=== PATIENT | female | born 1970 | race Caucasian/White ===

== ENCOUNTER 2019-01-27 21:29 | Observation (INO) | payer OTHER, SELFPAY ==
[2019-01-27 21:32] VITALS: BP 213/118; PULSE 100; RESP 18; TEMP 36.7; O2SAT 95
--- NOTE | 2019-01-27 21:42 | ED.GENADUL_ITS ---
Discharge Plan Disposition Patient Disposition: [facility] INPATIENT Condition: Fair Discharge Details Chief Complaint: Abd Prob Clinical Impression: Incarcerated ventral hernia Primary Care Provider: Lauren,Local ED Provider: Bernardo Aguilar Home Meds and New Rx's Prescriptions: No Action No Known Home Meds RF: 0 Medical Decision Making Patient is quite hypertensive and I suspect has undiagnosed high blood pressure. However she is in fair amount of discomfort and anxious as well. She has an incarcerated hernia clinically. IV established and fluids started. Patient m tammi n.p.o. Laboratory studies sent. Fentanyl given for pain so that further attempts at reduction of hernia can be performed. Even with 150 mcg of fentanyl on board patient remains exquisitely tender and unable to tolerate attempted reduction of hernia. Saturations went down after opiates and she needed to be placed on nasal cannula oxygen. Blood pressure remained elevated despite adequate analgesia and anxiolysis. She is given a small dose of IV labetalol with decent results to control her blood pressure to some degree. EKG was ordered. Laboratory studies show a slightly elevated white count. She also has elevated hemoglobin and hematocrit that is likely related to polycythemia from her smoking. Chemistries for the most part unremarkable. Lactic acid 1.5. Venous pH normal. Urine test negative. CT scan confirms large ventral hernia with piece of transverse colon present within the hernia sac. Case discussed with surgery, Dr. Diaz. We will keep the patient n.p.o. and on IV fluids. Admit for pain medication as needed and she will reevaluate in the morning. Patient aware and agreeable to admission. Lab Data Lab results reviewed: Yes I reviewed the patient's lab results. ECG Data Attestation: I personally reviewed and interpreted this ECG (s) as follows: Prior ECG tracings: not available for review Interpretation: Sinus tachycardia at 117. Normal intervals but rightward axis. Nonspecific ST changes but no ST elevation or depression. HPI General Mode of arrival: ambulatory . Date/Time Provider Initiated Documentation: 01/27/19 21:31 . Limitations to Documentation: no limitations . Information obtained by: patient and RN notes reviewed . HPI Narrative: Patient presents to ED with abdominal pain and swelling just above the umb ilicus. Patient reports that for the last few months she has noticed a bulge there especially when she bends over or coughs. It usually uncomfortable but not painful. Tonight after doing housework she is noticed that she has had increasing pain in that area. It is now actually very painful for her to bend over or cough. The bulge is still present. She has not had this previously in terms of the significant pain. She denies any fever, vomiting, diarrhea. She denies any chest pain or shortness of breath. She denies back pain. She denies medical problems but she has not seen a physician in years. She is a fairly heavy smoker. Related Data Home Medications Medication Instructions Recorded Confirmed Unknown [No Known Home Meds] 03/05/18 01/27/19 Allergies Allergy/AdvReac Type Severity Reaction Status Date / Time latex Allergy Intermediate Skin Rash Unverified 03/05/18 16:26 rosa maria Allergy Intermediate Skin Rash Uncoded 03/05/18 16:26 General Stated Complaint: Abd Prob CIELO: 3 Review of Systems Review of Systems 06/28 Review of Systems completed and is negative except as stated above in HPI and generalized skin lesions that come and go. (Systems reviewed: Const, Eyes, ENT, Resp, CV, GI, , MSK, Skin, Neuro) REPLACED BY [facility] Surgical History History of section (Inactive) Social History Smoking/Tobacco Use Status: Current every day Tobacco Type: cigarettes Years smoked: 25 and e-cigarettes Tobacco: How many years used: 25 Alcohol Intake: current Alcohol Intake frequency: a few times a week Drug use: Never Do you feel safe at home: Yes Do you feel safe in your relationship?: Yes Exam Narrative Exam Narrative: Vitals: Afebrile. Very hypertensive. Const: Obese female in NAD. HEENT: NC/AT. Normal facial exam. Eyes: Normal conjunctiva and sclera. Neck: Supple. Trachea midline. Lungs: Normal respiratory effort. Lungs are clear except for occasional expiratory wheeze. Cor: RRR without murmur/gallop. Good radial pulses. GI: Soft. Obvious ventral hernia above umbilicus with exquisite tender mass present. Rest of abdomen completely benign. Neuro: A+O x 3. CN grossly in tact. Good strength and no focal deficit. Ext: No C/C/E. No deformity or tenderness. Skin: Warm and dry. Multiple excoriated lesions throughout. Course Vital Signs Temperature 98.1 F 01/27/19 21:32 Pulse 100 H 01/27/19 21:32 Respiratory Rate 18 01/27/19 21:32 Blood Pressure 213/118 H 01/27/19 21:32 Pulse Oximetry 95 01/27/19 21:32 Temperature 98.1 F 01/27/19 21:32 Temperature Source Temporal Artery Scan 01/27/19 21:32 Pulse 100 H 01/27/19 21:32 Respiratory Rate 18 01/27/19 21:32 Blood Pressure 213/118 H 01/27/19 21:32 Blood Pressure Position Sitting 01/27/19 21:32 Pulse Oximetry 95 01/27/19 21:32 Oxygen Delivery Method Room Air 01/27/19 21:32 Oxygen Flow Rate 0 01/27/19 21:32 Pain Level 8 01/27/19 21:32 Comment 01/27/19 21:32
[2019-01-27] MEDS: Lactated Ringers 1,000 ML 125 ML IV (22:20)
[2019-01-27 22:21] LABS: Abs Immature Grans 0.03 k/cumm (0.0-0.09); Absolute Basophil Count 0.04 k/cumm (0.0-0.2); Absolute Lymphocyte Count 2.58 k/cumm (1.2-3.4); Absolute Monocyte Count 0.74 k/cumm (0.11-0.7); Basophils % 0.3; Eosinophils % 1.2; HCT 53.2 % (36.0-46.0); HGB 17.4 g/dL (12.0-15.5); Immature Grans % 0.2; Lymphocytes % 21.3; Mean Corp. HGB Concentration 32.7 g/dL (32.0-36.0); Mean Corpuscular Hemoglobin 26.4 pg (27.0-33.0); Mean Corpuscular Volume 80.7 fL (80-95); Monocytes % 6.1; Neutrophils % 70.9; Platelet Count 359 x1000/uL (130-400); RBC 6.59 m/cumm (4.00-5.20); White Blood Cell Count 12.09 k/cumm (4.4-10.8)
[2019-01-27] MEDS: fentaNYL 100 MCG/2 ML VIAL 50 MCG IVP ×3 (22:21→22:43)
[2019-01-27] MEDS: Normal Saline Flush 10 ML SYR IVP (22:34)
[2019-01-27 22:37] LABS: Absolute Eosinophil Count 0.15 k/cumm (0.0-0.7); Absolute Neutrophil Count 8.57 k/cumm (1.2-6.7)
[2019-01-27 22:38] LABS: Anisocytosis 1+
[2019-01-27 22:39] LABS: Macrocytosis 1+
[2019-01-27 22:50] LABS: ALT 28 U/L (12-78); AST 20 U/L (15-37); Albumin 3.8 g/dL (3.4-5.0); Alkaline Phosphatase 72 U/L (46-116); Anion Gap 9.7 mmol/L (3-11); BUN 10 mg/dL (7-18); Bilirubin, Total 1.2 mg/dL (0.2-1.0); CO2 29.3 mmol/L (21.0-32.0); Calcium 9.3 mg/dL (8.5-10.1); Chloride 96 mmol/L (98-107); Glucose 91 mg/dL (70-100); Lipase 126 U/L (73-393); Magnesium 1.7 mg/dL (1.8-2.4); Potassium 3.5 mmol/L (3.5-5.1); Sodium 135 mmol/L (136-145); Total Protein 8.3 g/dL (6.4-8.2)
[2019-01-27 23:01] LABS: BE (Venous) 8.3 mmol/L (-3-3); HCO3 (Venous) 34 mmol/L (22-28); O2 Sat (Venous) 36 % (70-80); TCO2 (Venous) 30 mmol/L (22-29); pCO2 (Venous) 59 mm/Hg (34-47); pH (Venous) 7.37 (7.32-7.43); pO2 (Venous) 21 mm/Hg (28-44)
[2019-01-27 23:03] LABS: Lactate-non-spesis 1.5 mmol/l (0.6-1.4)
[2019-01-27 23:05] VITALS: BP 194/110; PULSE 112; RESP 16; O2SAT 88
[2019-01-27] MEDS: Omnipaque 350 MG/ML 100 ML BTL IJ (23:17)
--- NOTE | 2019-01-27 23:23 | DI.CT_ITS ---
SYMPTOM/DIAGNOSIS: ? INCARCERATED VENTRAL HERNIA, PAIN ABDOMEN AND PELVIC CT: CT examination of the abdomen and pelvis was performed with a bolus infusion of 100 cc's of Omnipaque 350. Images obtained through the lung bases show mild cardiomegaly and clear lung bases. The liver is unremarkable in appearance except for a low attenuation, right hepatic lobe mass measuring about 12 mm. in greatest diameter consistent with a benign process. Spleen is unremarkable in appearance. Pancreas appears normal. Gallbladder and bile ducts are CT normal. Adrenals and kidneys are unremarkable except for a horizontally oriented right kidney. No urinary tract calcification or obstruction. Abdominal aorta is of normal diameter and major branches appear intact. There is a small infra-umbilical, fat containing ventral hernia. There is a tiny fat containing umbilical hernia. There is supra-umbilical ventral hernia with the hernia diastasis measuring about 5-6 cm. in diameter with an approximately 13 cm. in maximal diameter transverse width of the hernia on transaxial images. This hernia contains a loop of transverse colon without evidence of obstruction or strangulation. Remainder of the bowel appears intact. Appendix is normal. No evidence of diverticulitis. RESERVOIR CARETAKER structures are unremarkable. No abdominal or pelvic adenopathy. CONCLUSION: Large supra-umbilical ventral hernia containing a short segment of transverse colon, no evidence of obstruction or strangulation.
--- NOTE | 2019-01-27 23:43 | DI.VRAD_ITS ---
EXAM: CT Abdomen and Pelvis With Contrast EXAM DATE/TIME: 01/27/2019 10:49 PM CLINICAL HISTORY: 48 years old, female; Generalized; Patient HX: Abdominal pain when coughing or bending over TECHNIQUE: Imaging protocol: Axial computed tomography images of the abdomen and pelvis with intravenous contrast. Coronal and sagittal reformatted images were created and reviewed. Radiation optimization: All CT scans at this facility use at least one of these dose optimization techniques: automated exposure control; mA and/or kV adjustment per patient size (includes targeted exams where dose is matched to clinical indication); or iterative reconstruction. Contrast material: [id number]; Contrast volume: 100 ml; Contrast route: IV; COMPARISON: No relevant prior studies available. FINDINGS: ABDOMEN: Liver: No suspicious lesions. Gallbladder and bile ducts: No acute or concerning findings. Pancreas: Unremarkable. No ductal dilation. Spleen: No suspicious lesions. Adrenals: Unremarkalbe. No suspicious mass. Kidneys and ureters: Unremarkable. No hydro. No suspicious lesions. Stomach and bowel: Unremarkable. No obstruction or inflammatory changes. Appendix: No evidence of appendicitis. PELVIS: Bladder: Unremarkable as visualized. Reproductive: Unremarkable as visualized. ABDOMEN and PELVIS: Intraperitoneal space: No free air. No significant fluid collection. Bones/joints: No acute fracture. No dislocation. Soft tissues: Just above the umbilicus there is a moderate sized ventral hernia containing a short segment of the transverse colon with no evidence of obstruction or strangulation. 8 cm below the umbilicus there is a small fat containing ventral hernia. Vasculature: Unremarkable. No acute findings Lymph nodes: Unremarkable. IMPRESSION: Just above the umbilicus there is a moderate sized ventral hernia containing a short segment of the transverse colon with no evidence of obstruction or strangulation. 8 cm below the umbilicus there is a small fat containing ventral hernia. Dictated and Authenticated by: Devonte Nava MD. Ordering:DAYANARA Chang MD
[2019-01-27 23:44] VITALS: BP 182/105; PULSE 106; PULSE 113; RESP 19; O2SAT 95
[2019-01-27 23:46] VITALS: BP 187/104; PULSE 109; PULSE 111; RESP 18; O2SAT 93
[2019-01-27 23:48] VITALS: BP 190/104; PULSE 113; RESP 18; O2SAT 88
[2019-01-27 23:49] VITALS: O2SAT 88
[2019-01-28] VITALS (18 sets, daily range): BP systolic 119–187; BP diastolic 69–104; PULSE 84–110; RESP 16–22; TEMP 36.3–37; O2SAT 87–96
[2019-01-28] MEDS: Labetalol 100 MG/20 ML VIAL 10 MG IVP (00:06)
[2019-01-28] MEDS: Lactated Ringers 1,000 ML 125 ML IV (02:30)
[2019-01-28 07:18] LABS: Abs Immature Grans 0.01 k/cumm (0.0-0.09); Absolute Basophil Count 0.02 k/cumm (0.0-0.2); Absolute Eosinophil Count 0.14 k/cumm (0.0-0.7); Absolute Lymphocyte Count 1.81 k/cumm (1.2-3.4); Absolute Monocyte Count 0.57 k/cumm (0.11-0.7); Absolute Neutrophil Count 5.77 k/cumm (1.2-6.7); Basophils % 0.2; Eosinophils % 1.7; Immature Grans % 0.1; Lymphocytes % 21.8; Mean Corp. HGB Concentration 31.3 g/dL (32.0-36.0); Mean Corpuscular Hemoglobin 25.7 pg (27.0-33.0); Mean Corpuscular Volume 82.3 fL (80-95); Mean Platelet Volume 9.5 fL (8.0-11.0); Monocytes % 6.9; Neutrophils % 69.3; Platelet Count 323 x1000/uL (130-400); RBC 5.83 m/cumm (4.00-5.20); RBC Distribution Width 18.7 % (11.7-14.6); White Blood Cell Count 8.32 k/cumm (4.4-10.8)
--- NOTE | 2019-01-28 07:34 | PDOC.CMIN ---
- If Service Date Differs Date of service: 01/28/19 Time of Service: 07:34 Care Management Initial Assess REASON FOR HOSPITALIZATION:: Incarcerated ventral hernia PAST MEDICAL HISTORY/PAST SURGICAL HISTORY:: History of section PREVIOUS FUNCTIONAL STATUS/SOCIAL/FAMILY SUPPORTS:: Marbella resides alone in [facility]. She reports that she has an 18 y/o daughter whom is graduating high school this year. 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 CURRENT FUNCTIONAL STATUS:: Currently Marbella is sitting up in bed when this financial underwriter visits, she is pleasant and easily engages in discussion. ADVANCE DIRECTIVES:: None on file Has patient been provided with information about the portal?: Yes Did the patient sign up for the portal?: No CODE STATUS:: Full Code INSURANCE COVERAGE / FINANCIAL ISSUES:: Financial ASST 70 CURRENT HOME/COMMUNITY SERVICES/EQUIPMENT:: Currently Marbella has no services or medical equipment in the community PRIMARY CARE PHYSICIAN:: Jami Hill POTENTIAL DISCHARGE NEEDS:: F/U appointment with Dr. Diaz PATIENT/FAMILY EDUCATION NEEDS:: Review DC instructions, any limitations, and ongoing DC planning discussion. Discuss 'Ask Me Three' ANTICIPATED BARRIERS TO DISCHARGE:: None identified at this time TRANSPORTATION:: To transport self home. PLAN:: Marbella will return home with no anticipated services. She will F/U with Dr. Diaz and plan of care as prescribed. Marbella will transport self when ready.
--- NOTE | 2019-01-28 07:38 | INITIAL_ITS ---
- If Service Date Differs Date of service: 01/28/19 Time of Service: 07:34 Care Management Initial Assess REASON FOR HOSPITALIZATION:: Incarcerated ventral hernia PAST MEDICAL HISTORY/PAST SURGICAL HISTORY:: History of section PREVIOUS FUNCTIONAL STATUS/SOCIAL/FAMILY SUPPORTS:: Marbella resides alone in [facility]. She reports that she has an 18 y/o daughter whom is graduating high school this year. 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 CURRENT FUNCTIONAL STATUS:: Currently Marbella is sitting up in bed when this fha underwriter visits, she is pleasant and easily engages in discussion. ADVANCE DIRECTIVES:: None on file Has patient been provided with information about the portal?: Yes Did the patient sign up for the portal?: No CODE STATUS:: Full Code INSURANCE COVERAGE / FINANCIAL ISSUES:: Financial ASST 70 CURRENT HOME/COMMUNITY SERVICES/EQUIPMENT:: Currently Marbella has no services or medical equipment in the community PRIMARY CARE PHYSICIAN:: Jami Hill POTENTIAL DISCHARGE NEEDS:: F/U appointment with Dr. Diaz PATIENT/FAMILY EDUCATION NEEDS:: Review DC instructions, any limitations, and on going DC planning discussion. Discuss 'Ask Me Three' ANTICIPATED BARRIERS TO DISCHARGE:: None identified at this time TRANSPORTATION:: To transport self home. PLAN:: Marbella will return home with no anticipated services. She will F/U with Dr. Diaz and plan of care as prescribed. Marbella will transport self when ready.
--- NOTE | 2019-01-28 08:58 | W.PM.HP.N ---
Date of service: 01/28/19 Time of Service: 08:58 Assessment and Plan (1) Ventral hernia without obstruction or gangrene: hernia today is soft and reducible. minimal tenderness. pt feels better today ADAT will see as outpt. consider preOp CE HTN- uncontrolled. started on metoprolol. This needs to be under better control prior to surgery pt has insurance now and needs to establish care adn get BP under better control cont trying to work on smoking cessation. 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 no n/v. She is hungry today. In the ED last pm- the Dr. was not able to reduce the hernia. It is tender for the pain from attempts to reduce the hernia- but reduces with minimal pain today. pt states she is hungry. She does not see a PCP reg. Not had BP checked or had glucose checked. BP today is signif better (was 200/120). received labetolol in am adn this brought her BP down . no dysuria. no leg pain or swelling. + smoking- trying to quit by vaping. Review of Systems Review of Systems All systems reviewed & are unremarkable except as noted in HPI and below Constitutional Comments: acute onset abdominal pain. pt has not had help insurance and has not been to the doctor in a long time. She is a long time smoker. Eyes Reports system reviewed and no additional complaints, except as docu ENT Reports system reviewed and no additional complaints, except as docu Cardiovascular Comments: no chest pain or sob + smoker. no chronic cough. denies changes in her bowels. no changes in wt no changes in bowels. not had any surgery through this area before. Integumentary/Breasts Comments: hx of skin abscesses under folds. 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 Endocrine Comments: no to all [facility] Surgical History History of section (Inactive) Social History Smoking/Tobacco Use Status: Current every day Tobacco Type: cigarettes and e-cigarettes Tobacco: How many years used: 25 Alcohol Intake: current Alcohol Intake frequency: a few times a week Drug use: Never Do you feel safe at home: Yes Do you feel safe in your relationship?: Yes Meds Home Medications Medication Instructions Recorded Confirmed Type metoprolol tartrate 12.5 mg PO ONCE #30 tab 01/28/19 02/01/19 Rx nicotine [Nicoderm CQ] 1 patch TD Q24H #14 each 01/28/19 02/01/19 Rx Allergies Allergy/AdvReac Type Severity Reaction Status Date / Time latex Allergy Intermediate Skin Rash Unverified 03/05/18 16:26 rosa maria Allergy Intermediate Skin Rash Uncoded 03/05/18 16:26 Exam Narrative Exam Narrative: appears comfortable adn in no distress HENMT Head: normal to inspection Mouth: oral mucosae normal Teeth and gingiva: dentition normal Eyes Sclera: sclerae normal Chest Chest: normal inspection of the chest Other: clinical breast exam was not indicated. pt has not had one or a mammogram in a while Resp Effort & Inspection: normal respiratory effort Auscultation: clear to auscultation bilaterally Cardio Rate: regular rate Rhythm: regular rhythm GI Inspection: normal to inspection, obesity and scar Palpation: soft and hernia Other: she has x2 hernias -the larger above the umbilicus that contains bowel. This is quite large. also difficult to reduce, but is reducible. Tender to pt- but not peritonitis tender. there is a smaller hernia below the umbilicus. There is an old c section scar in the pfannestiehl position. good BS. obese internal organ are not palpable no active skin infection/abscesses. Skin General skin exam: no rashes or lesions noted Other: no open sores. mult scars and lesions in various states of healing Extrem General: normal to inspection, no clubbing, cyanosis or edema and no edema Results Labs : 01/28/19 06:17 01/27/19 22:10 Laboratory Results - last 24 hr 01/27/19 01/27/19 01/27/19 22:10 22:10 22:59 WBC 12.09 H RBC 6.59 H Hgb 17.4 H Hct 53.2 H MCV 80.7 MCH 26.4 L MCHC 32.7 RDW 19.0 H Plt Count 359 MPV 9.0 Immature Gran % 0.2 Neutrophils % 70.9 Lymphocytes % 21.3 Monocytes % 6.1 Eosinophils % 1.2 Basophils % 0.3 Absolute Neutrophils 8.57 H Absolute Lymphocytes 2.58 Absolute Monocytes 0.74 H Absolute Eosinophils 0.15 Absolute Basophils 0.04 RBC Morphology See below Anisocytosis 1+ Macrocytosis 1+ VBG pH VBG pCO2 VBG pO2 VBG HCO3 VBG Total CO2 VBG O2 Saturation VBG Base Excess Sodium 135 L Potassium 3.5 Chloride 96 L Carbon Dioxide 29.3 Anion Gap 9.7 BUN 10 Creatinine 0.70 Estimated GFR/1.73 m2 >= 60.00 Glucose 91 Lactate 1.5 H Calcium 9.3 Magnesium 1.7 L Total Bilirubin 1.2 H AST 20 ALT 28 Alkaline Phosphatase 72 Total Protein 8.3 H Albumin 3.8 Lipase 126 01/27/19 01/28/19 22:59 06:17 WBC 8.32 D RBC 5.83 H Hgb 15.0 D Hct 48.0 H MCV 82.3 MCH 25.7 L MCHC 31.3 L RDW 18.7 H Plt Count 323 MPV 9.5 Immature Gran % 0.1 Neutrophils % 69.3 Lymphocytes % 21.8 Monocytes % 6.9 Eosinophils % 1.7 Basophils % 0.2 Absolute Neutrophils 5.77 Absolute Lymphocytes 1.81 Absolute Monocytes 0.57 Absolute Eosinophils 0.14 Absolute Basophils 0.02 RBC Morphology Anisocytosis Macrocytosis VBG pH 7.37 VBG pCO2 59 H VBG pO2 21 L VBG HCO3 34 H VBG Total CO2 30 H VBG O2 Saturation 36 L VBG Base Excess 8.3 H Sodium Potassium Chloride Carbon Dioxide Anion Gap BUN Creatinine Estimated GFR/1.73 m2 Glucose Lactate Calcium Magnesium Total Bilirubin AST ALT Alkaline Phosphatase Total Protein Albumin Lipase Last Vital Signs Temp 36.3 C L 01/28/19 07:44 Pulse 95 H 01/28/19 07:44 Resp 18 01/28/19 07:44 BP 152/80 H 01/28/19 07:44 Pulse Ox 93 L 01/28/19 07:44
[2019-01-28 11:10] LABS: TSH 2.68 uIU/mL (0.358-3.74)
[2019-01-28] MEDS: Nicotine 7 MG/24 HR PATCH TD (11:13)
[2019-01-28] MEDS: Metoprolol CR 25 MG TABCR 12.5 MG PO (11:14)
[2019-01-28] MEDS: Acetaminophen 500 MG TAB 1000 MG PO (11:15)
[2019-01-28 11:18] LABS: Cholesterol 169 mg/dL (50-200); HDL Cholesterol 44 mg/dL (40-60); LDL CHOLESTEROL 115 mg/dL (<100); Triglyceride 76 mg/dL (30-150)
[2019-01-28] MEDS: Ketorolac 30 MG/ML VIAL IVP (11:20)
[2019-01-28 12:21] LABS: Hemoglobin A1C 5.8 % (4.5-6.2)
--- NOTE | 2019-01-28 13:09 | PHARADMIT ---
Admission Pharmacy Clinical Review INCARCERATED VENTRAL HERNIA; ELEVATED BLOOD PRESSURE Code Status Full Code Current Weight 106.6 kg Renally Cleared and Narrow Therapeutic Index Meds CRCL 69ML/MN QTc Value / Action Taken 480 BP Control, Fever 119/69 AFEBRILE Electrolytes reviewed OK DVT Prophylaxis NO Opiate Usage / Scheduled Bowel Regimen Ordered PRN/NO Plt/SCr for Heparin / Enoxaparin 323/0.7 INR for Warfarin NA H/H stable, WBC/Bands 15.0/48.0 WBC 8.32 Antibiotic appropriateness NA Cultures and Sensitivities NA Surgical ABX d/c within 24 hr NA DM control / Insulin Dosing NA Heart Failure (Check EF%) (CATHRYN's, B-Block, Diuretics) NA IV to PO Switch IVF AND SOME MEDS Home Meds Reviewed Home Meds Not Ordered Unknown [No Known Home Meds] 03/05/18 [History Confirmed 01/27/19] Comments
== END 2019-01-28 16:43 | disposition home or self-care (01) ==
LOC: ER 01-28 00:57 → MS 01-28 02:14
PROVIDERS: Admitting Provider Surgery; Emergency Provider Emergency Medicine; PCP Family Medicine; Visit Provider Surgery
DX: K43.9 Ventral hernia without obstruction or gangrene (principal); I10 Essential (primary) hypertension; F17.210 Nicotine dependence, cigarettes, uncomplicated
CPT/HCPCS: 36415; 80053; 80061; 81025; 82805; 83690; 83721; 93005; 96361; 96374; 96375; 99222; 99285; 74177; 83036; 83605; 83735; 84443; 85025; 93010; G0378; J1885; J3010; J3490

== ENCOUNTER 2019-02-16 12:28 | Outpatient (CLI) | payer OTHER, SELFPAY ==
[2019-02-16 13:13] LABS: Bilirubin Negative (Negative); Blood Negative (Negative); Clarity Clear; Glucose Negative (Negative); Ketones Negative (Negative); Leukocyte Esterase Negative (Negative); Nitrite Negative (Negative); Specific Gravity <= 1.005 (1.005-1.025); Urobilinogen 0.2 EU/dL (Up TO 0.2)
[2019-02-16 13:58] LABS: CREATININE 0.57 mg/dL (0.55-1.02); Potassium 3.7 mmol/L (3.5-5.1)
== END 2019-02-16 12:48 ==
PROVIDERS: PCP General Practice; Visit Provider General Practice
DX: I10 Essential (primary) hypertension (principal)
CPT/HCPCS: 36415; 81003; 82565; 84132

== ENCOUNTER 2019-02-25 00:37 | Outpatient (CLI) | payer OTHER, SELFPAY ==
--- NOTE | 2019-02-25 13:42 | MERGE_ITS ---
*[facility]* *[facility]* [address] [place] [address] Date of study: 02/25/2019 Transthoracic Echocardiography M-mode, complete 2D, complete spectral Doppler, and color Doppler *STUDY CONCLUSIONS* Impressions: Mild LVH. Moderately to severely elevated PA pressure with RV dysfunction. Summary: 1. Left ventricle: The cavity size was at the lower limits of normal. Wall thickness was increased in a pattern of mild LVH. Systolic function was normal. The estimated ejection fraction was 55-60%. Wall motion was normal; there were no regional wall motion abnormalities. 2. Ventricular septum: The contour showed diastolic flattening and systolic flattening. These changes are consistent with RV volume and RV pressure overload. 3. Aortic valve: Valve area (VTI): 2.1cm^2. Valve area (Vmax): 2cm^2. Valve area (Vmean): 2.3cm^2. 4. Right ventricle: The cavity size was moderately dilated. Wall thickness was mildly increased. Systolic function was moderately reduced. 5. Pulmonary arteries: Pulmonary systolic pressure was moderately to severely increased. PA peak pressure: 57mm Hg (S). *PATIENT PRESENTATION* Height: 157.5cm ((62in) ) S/D Pressure: 127 / 84 Weight: 104.3kg ((229.5lb) ) BSA: 2.2m^2 Test start time: 01:50 PM. Test stop time: 02:50 PM. 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 This study was interpreted by [facility]. Pertinent images and digital data are archived for permanent storage and are available for subsequent review. No prior study was available for comparison. Study status: Routine. Transthoracic echocardiography. M-mode, complete 2D, complete spectral Doppler, and color Doppler. A Transthoracic Echocardiogram was performed. Scanning was performed from the parasternal, apical, subcostal, and suprasternal notch acoustic windows. Images were obtained using an [id number] cardiac ultrasound machine. Image quality was fair. The study was technically limited due to body habitus. Study completion: The patient tolerated the procedure well. History: PMH: HTN. ? LVH by exam. *CARDIAC ANATOMY* Left ventricle: The cavity size was at the lower limits of normal. Wall thickness was increased in a pattern of mild LVH. Systolic function was normal. The estimated ejection fraction was 55-60%. Wall motion was normal; there were no regional wall motion abnormalities. Aortic valve: Trileaflet; normal thickness leaflets. Mobility was not restricted. Doppler: Transvalvular velocity was within the normal range. There was no stenosis. There was no significant regurgitation. VTI ratio of LVOT to aortic valve: 0.68. Valve area (VTI): 2.1cm^2. Indexed valve area (VTI): 1cm^2/m^2. Peak velocity ratio of LVOT to aortic valve: 0.63. Valve area (Vmax): 2cm^2. Indexed valve area (Vmax): 0.9cm^2/m^2. Mean velocity ratio of LVOT to aortic valve: 0.75. Valve area (Vmean): 2.3cm^2. Indexed valve area (Vmean): 1.1cm^2/m^2. Mean gradient (S): 7.5mm Hg. Peak gradient (S): 13.8mm Hg. Aorta: Aortic root: The aortic root was normal in size. Mitral valve: Structurally normal valve. Mobility was not restricted. Doppler: Transvalvular velocity was within the normal range. There was no evidence for stenosis. There was trivial regurgitation. Valve area by pressure half-time: 3.5cm^2. Indexed valve area by pressure half-time: 1.6cm^2/m^2. Peak gradient (D): 2.3mm Hg. Left atrium: The atrium was normal in size. Right ventricle: The cavity size was moderately dilated. Wall thickness was mildly increased. Systolic function was moderately reduced. Ventricular septum: The contour showed diastolic flattening and systolic flattening. These changes are consistent with RV volume and RV pressure overload. Pulmonic valve: Poorly visualized. Doppler: Transvalvular velocity was within the normal range. There was no evidence for stenosis. There was mild regurgitation. Tricuspid valve: Structurally normal valve. Doppler: Transvalvular velocity was within the normal range. There was no evidence for stenosis. There was mild regurgitation. Pulmonary artery: Poorly visualized. Pulmonary systolic pressure was moderately to severely increased. Right atrium: The atrium was normal in size. Pericardium: There was no pericardial effusion. Systemic veins: Inferior vena cava: Well visualized. The vessel was patent and normal in size. The respirophasic diameter changes were in the normal range (greater than or equal to 50%), consistent with normal central venous pressure. Baseline ECG: Normal sinus rhythm. Measurements Left ventricle Value Reference LV ID, ED, PLAX 3.5 cm 3.5 - 6.0 LV ID, ES, PLAX 2.3 cm 2.1 - 4.0 LV PW thickness, ED, PLAX 1.3 cm LV end-diastolic volume, 1-p A4C 67 ml LV ejection fraction, 1-p A4C 50 % LV e', lateral 0.069 m/sec LV E/e', lateral 11 LV e', medial 0.054 m/sec LV E/e', medial 14 LV e', average 0.061 m/sec LV E/e', average 12 Ventricular septum Value Reference IVS thickness, ED, PLAX 1.3 cm LVOT Value Reference LVOT ID, A-P 2.0 cm LVOT area 3.1 cm^2 LVOT peak velocity, S 1.18 m/sec LVOT mean velocity, S 0.97 m/sec LVOT VTI, S 22.6 cm LVOT peak gradient, S 5.6 mm Hg LVOT mean gradient, S 3.9 mm Hg Stroke volume (SV), LVOT DP 70 ml Stroke index (SV/bsa), LVOT DP 32 ml/m^2 Aortic valve Value Reference Aortic valve peak velocity, S 1.9 m/sec Aortic valve mean velocity, S 1.29 m/sec Aortic valve VTI, S 33.0 cm Aortic mean gradient, S 7.5 mm Hg Aortic peak gradient, S 13.8 mm Hg VTI ratio, LVOT/AV 0.68 Aortic valve area, VTI 2.1 cm^2 Velocity ratio, peak, LVOT/AV 0.63 Aortic valve area, peak velocity 2 cm^2 Velocity ratio, mean, LVOT/AV 0.75 Aortic valve area, mean velocity 2.3 cm^2 Aortic valve area/bsa, mean velocity 1.1 cm^2/m^2 Aorta Value Reference Aortic root ID, ED 2.7 cm Left atrium Value Reference LA ID, A-P, ES 3.0 cm LA ID/bsa, A-P 1.3 cm/m^2 <=2.2 LA area, ES, A4C 12.5 cm^2 8.8 - 23.4 LA area, ES, A2C 14 cm^2 LA volume/bsa, ES, 1-p A4C 14 ml/m^2 LA volume, ES, 2-p 32 ml LA volume/bsa, ES, 2-p 15 ml/m^2 LA/aortic root ratio 1.1 Mitral valve Value Reference Mitral E-wave peak velocity 0.75 m/sec Mitral A-wave peak velocity 0.93 m/sec Mitral deceleration time 219 ms 150 - 230 Mitral pressure half-time 64 ms Mitral peak gradient, D 2.3 mm Hg Mitral E/A ratio, peak 0.81 Mitral valve area, PHT, DP 3.5 cm^2 Pulmonary arteries Value Reference PA pressure, S, DP (H) 57 mm Hg <=30 Tricuspid valve Value Reference Tricuspid regurg peak velocity 3.4 m/sec Tricuspid peak RV-RA gradient 46.6 mm Hg Right atrium Value Reference RA area, ES, A4C 19.2 cm^2 8.3 - 19.5 Systemic veins Value Reference Estimated CVP 10 mm Hg Right ventricle Value Reference RV pressure, S, DP (H) 57 mm Hg <=30 Legend: (L) and (H) booker values outside specified reference range. I have personally reviewed the images and have reviewed and edited the reported findings. Electronically signed by Snehal Lawson 02/25/2019 16:58
== END 2019-02-25 00:57 ==
PROVIDERS: PCP General Practice; Visit Provider General Practice
DX: I27.20 Pulmonary hypertension, unspecified (principal); I10 Essential (primary) hypertension
CPT/HCPCS: 93306

== ENCOUNTER 2019-06-22 09:00 | Outpatient (CLI) | payer OTHER, SELFPAY | END 2019-06-22 09:20 | PROVIDERS: PCP General Practice; Visit Provider Surgery | DX: K43.9 Ventral hernia without obstruction or gangrene (principal); Z01.818 Encounter for other preprocedural examination ==

== ENCOUNTER 2019-06-29 06:22 | Day surgery (SDC) | payer OTHER, SELFPAY ==
[2019-06-29 06:32] VITALS: BP 131/80; PULSE 79; RESP 16; TEMP 36.5; O2SAT 90
--- NOTE | 2019-06-29 07:36 | NUR.NOTE ---
06/29/19: Pt cancelled per Dr. Herbert and Livia Redd CRNA r/t pt's current health. Pre-op in [facility], O2 sat: 88%-90% RA. When nurse and pt made aware of case being cancelled, pt's transportation was made aware and pt was provided coffee and escorted out of [facility]. Pt was a bit disappointed but pleasant upon discharge. -BR
== END 2019-06-29 06:42 ==
PROVIDERS: PCP General Practice; Visit Provider Surgery
DX: K43.9 Ventral hernia without obstruction or gangrene (principal); Z53.09 Procedure and treatment not carried out because of other contraindication; Y66 Nonadministration of surgical and medical care; R09.02 Hypoxemia

== ENCOUNTER 2019-07-14 01:07 | Outpatient (CLI) | payer OTHER, SELFPAY ==
--- NOTE | 2019-07-14 08:43 | DI.RAD_ITS ---
EXAM: XR CHEST 2V PA LATERAL INDICATION: HYPOXIA, RESTRICTIVE PATTERN PFTS. COMPARISON: CHEST 2 VIEWS PA,LAT from 03/05/2018 TECHNIQUE: 2D digital imaging was performed. FINDINGS: Heart size and pulmonary vasculature are within normal limits. The lungs are clear. No effusion or pneumothorax is identified. No acute abnormality is seen in the bones. IMPRESSION: No acute pulmonary process.
== END 2019-07-14 01:27 ==
PROVIDERS: PCP General Practice; Visit Provider General Practice
DX: R09.02 Hypoxemia (principal); J98.4 Other disorders of lung
CPT/HCPCS: 71046

== ENCOUNTER 2019-07-14 08:13 | Outpatient (CLI) | payer OTHER, SELFPAY ==
[2019-07-14 08:40] VITALS: O2SAT 95
== END 2019-07-14 08:33 ==
PROVIDERS: PCP General Practice; Visit Provider General Practice
DX: R09.02 Hypoxemia (principal)
CPT/HCPCS: 82805

== ENCOUNTER 2019-08-10 03:27 | Emergency (ER) | payer OTHER, SELFPAY ==
[2019-08-10 03:30] VITALS: BP 160/95; PULSE 102; RESP 16; TEMP 36.5; O2SAT 98
--- NOTE | 2019-08-10 03:36 | ED.GENADUL_ITS ---
Discharge Plan Disposition Patient Disposition: HOME Condition: Good Discharge Details Chief Complaint: DentalOral Clinical Impression: Dental infection Primary Care Provider: Christiano Sosa ED Provider: Bernardo Aguilar Meds and New Rx's Prescriptions: New penicillin V potassium 500 mg tablet 500 mg PO TID Qty: 20 RF: 0 Continued metoprolol tartrate 25 mg tablet 50 mg PO DAILY RF: 0 hydrochlorothiazide 25 mg tablet 25 mg PO DAILY RF: 0 nicotine [Nicoderm CQ] 7 mg/24 hr patch 24 hour 1 patch TD Q24H PRNRF: 0 losartan 25 mg Tablet 25 mg PO DAILY RF: 0 Discharge Instructions Instructions: Dental Abscess (ED) Additional Instructions: Use topical benzocaine to help with pain. May use every 3-4 hours as needed. Alternate 1 g of acetaminophen with 600 mg of ibuprofen every 4 hours. Take penicillin as directed. Contact dentist for follow-up later this week. Return to ED for high fever, facial swelling, difficulty breathing, inability to swallow, other concerns. Medical Decision Making Right lower molar with decay/fracture and significant percussion tenderness as well as tenderness along the mandible. No gingival abscess. No facial swelling. No airway compromise. Topical benzocaine applied with decent relief of pain. Will start on penicillin. Refer to dentistry. Return to ED for high fever, facial swelling, difficulty breathing, inability to swallow. HPI General Mode of arrival: ambulatory . Date/Time Provider Initiated Documentation: 08/10/19 03:35 . Limitations to Documentation: no limitations . Information obtained by: patient and RN notes reviewed . HPI Narrative: Patient presents with right lower dental pain for the last 24 hours. She has had no fever. She has no facial swelling. She has no difficulty breathing or swallowing. She is taken Advil which does help. Related Data Home Medications Medication Instructions Recorded Confirmed hydrochlorothiazide 25 mg tablet 25 mg PO DAILY 02/22/19 08/10/19 metoprolol tartrate 25 mg tablet 50 mg PO DAILY tab 02/22/19 08/10/19 losartan 25 mg PO DAILY 06/22/19 08/10/19 nicotine [Nicoderm CQ] 1 patch TD Q24H PRN 08/10/19 08/10/19 penicillin V potassium 500 mg PO TID #20 tab 08/10/19 Previous Rx's Medication Instructions Recorded penicillin V potassium 500 mg PO TID #20 tab 08/10/19 Allergies Allergy/AdvReac Type Severity Reaction Status Date / Time latex Allergy Intermediate Skin Rash Verified 08/10/19 03:33 rosa maria Allergy Intermediate Skin Rash Uncoded 08/10/19 03:33 General Stated Complaint: DentalOral CIELO: 4 Review of Systems Constitutional Constitutional: Denies chills and Denies fever(s) ENT Ears, Nose, Mouth, and Throat: Reports dental pain, Denies dysphagia and Denies odynophagia Cardiovascular Cardiovascular: Denies dyspnea Respiratory Respiratory: Denies dyspnea and Denies stridor Gastrointestinal Gastrointestinal: Denies dysphagia and Denies odynophagia [facility] Medical History Hypertension (Chronic) Pulmonary hypertension (Chronic) Surgical History History of section (Inactive) S/P hernia repair (Acute) Social History Smoking/Tobacco Use Status: Current every day Tobacco Type: cigarettes Years smoked: 25 Tobacco: How many years used: 25 Alcohol Intake: current Alcohol Intake frequency: a few times a month Drug use: Never Substance use type: does not use Do you feel safe at home: Yes Do you feel safe in your relationship?: Yes Exam Const General: cooperative and comfortable Orientation: alert and oriented x3 HENMT Head: normocephalic and atraumatic Ears: external ears normal Face and sinus: no erythema, no edema and tenderness on the right mandible Mouth: lip normal, tongue normal and oropharynx normal Teeth and gingiva: gingiva normal, poor dentition and other (right lower molar fracture/decay w/ percussion tenderness) Course Vital Signs Vital signs: Vital Signs Temperature 97.7 F 08/10/19 03:30 Pulse 102 H 08/10/19 03:30 Respiratory Rate 16 08/10/19 03:30 Blood Pressure 160/95 H 08/10/19 03:30 Pulse Oximetry 98 08/10/19 03:30 Temperature 97.7 F 08/10/19 03:30 Pulse 102 H 08/10/19 03:30 Respiratory Rate 16 08/10/19 03:30 Respiratory Effort 08/10/19 03:34 Blood Pressure 160/95 H 08/10/19 03:30 Blood Pressure Position Sitting 08/10/19 03:30 Pulse Oximetry 98 08/10/19 03:30 Oxygen Delivery Method Room Air 08/10/19 03:30 Oxygen Flow Rate 0 08/10/19 03:30 Pain Level 9 08/10/19 03:35
[2019-08-10] MEDS: Benzocaine 20% Gel 30 GM JAR MM (04:01)
[2019-08-10] MEDS: Penicillin V POTASSIUM 500 MG TAB PO (04:01)
[2019-08-10] MEDS: Acetaminophen 500 MG TAB 1000 MG PO (04:01)
== END 2019-08-10 04:00 | disposition home or self-care (01) ==
PROVIDERS: Emergency Provider Emergency Medicine; PCP General Practice
DX: K04.7 Periapical abscess without sinus (principal); K03.81 Cracked tooth; I10 Essential (primary) hypertension
CPT/HCPCS: 99283

== ENCOUNTER 2020-02-23 19:41 | Outpatient (REF) | payer MEDICAID, SELFPAY ==
[2020-02-23 15:52] LABS: ALT 26 U/L (14-59); AST 15 U/L (15-37); Albumin 3.6 g/dL (3.4-5.0); Alkaline Phosphatase 55 U/L (46-116); Anion Gap 7.5 mmol/L (3-11); BUN 8 mg/dL (7-18); Bilirubin, Total 0.3 mg/dL (0.2-1.0); CO2 30.5 mmol/L (21.0-32.0); Calcium 8.9 mg/dL (8.5-10.1); Calculated LDL 155 mg/dL (<100); Chloride 104 mmol/L (98-107); Cholesterol 230 mg/dL (<200); Glucose 101 mg/dL (74-106); HDL Cholesterol 52 mg/dL (40-60); Potassium 4.5 mmol/L (3.5-5.1); Sodium 142 mmol/L (136-145); Total Protein 7.3 g/dL (6.4-8.2); Triglyceride 117 mg/dL (<150)
== END 2020-02-23 20:01 ==
LOC: NCHCN 19:41
PROVIDERS: PCP Nurse Practitioner Family; Visit Provider Nurse Practitioner Family
DX: I27.20 Pulmonary hypertension, unspecified (principal); I10 Essential (primary) hypertension
CPT/HCPCS: 80053; 80061

== ENCOUNTER 2020-02-29 07:55 | Outpatient (CLI) | payer MEDICAID, SELFPAY ==
[2020-03-01 15:51] LABS: COVID-19 RT-PCR UVMMC Result Negative (Negative)
== END 2020-02-29 08:15 ==
PROVIDERS: PCP Nurse Practitioner Family; Visit Provider Family Medicine
DX: Z11.59 Encounter for screening for other viral diseases (principal)
CPT/HCPCS: U0003

== ENCOUNTER 2020-03-03 03:12 | Outpatient (CLI) | payer MEDICAID, SELFPAY ==
--- NOTE | 2020-03-06 09:14 | W.PFT ---
Date of service: 03/04/20 Time of Service: 08:31 Pulmonary Function Test Result Interpretation Spirometry: Spirometry shows no evidence of obstructive airways disease, no bronchodilator response Lung Volumes: Lung volumes show moderate restriction. Extremely low ERV may correlate with chest wall restriction from possible underlying obesity or other restrictive process. Diffusion Capacity: Diffusion capacity is mildly reduced which is normal when corrected to alveolar volume Airway Pressure: Airways resistance is elevated Impression Moderately severe restrictive pattern, associated with mild diffusion defect. The very low ERV may correlate with underlying chest wall restriction from either underlying obesity or other restrictive process. Clinical correlation recommended. Clinical Correlation therefore is recommended.
== END 2020-03-03 03:32 ==
PROVIDERS: PCP Nurse Practitioner Family; Visit Provider Nurse Practitioner Family
DX: R06.09 Other forms of dyspnea (principal); F17.210 Nicotine dependence, cigarettes, uncomplicated; R06.02 Shortness of breath
CPT/HCPCS: 94060; 94726; 94729

== ENCOUNTER 2020-03-31 11:46 | Outpatient (REF) | payer MEDICAID, SELFPAY ==
[2020-03-31 18:59] LABS: HCT 51.1 % (36.0-46.0); Mean Corp. HGB Concentration 33.3 g/dL (32.0-36.0); Mean Corpuscular Hemoglobin 29.3 pg (27.0-33.0); Mean Corpuscular Volume 88.1 fL (80-95); Mean Platelet Volume 9.4 fL (8.0-11.0); Platelet Count 461 x1000/uL (130-400); RBC Distribution Width 14.4 % (11.7-14.6); White Blood Cell Count 10.22 k/cumm (4.4-10.8)
[2020-03-31 19:21] LABS: TSH (W/Ref FT4) 1.43 uIU/mL (0.36-3.74)
== END 2020-03-31 12:06 ==
LOC: NCHCN 11:46
PROVIDERS: PCP Nurse Practitioner Family; Visit Provider Nurse Practitioner Family
DX: R53.83 Other fatigue (principal)
CPT/HCPCS: 85027; 84443

== ENCOUNTER 2020-06-21 00:26 | Outpatient (CLI) | payer MEDICAID, SELFPAY ==
--- NOTE | 2020-06-21 09:30 | DI.US_ITS ---
APPROVED REPORT EXAM: Comprehensive 2D, Doppler, and color-flow Echocardiogram Patient Location: Out-Patient Indications: Pulmonary Hypertension Other Information Study Quality: Fair Conclusion This is a technically limited study Left Ventricle : The left ventricle is normal size. The left ventricular systolic function is normal. The left ventricular ejection fraction is within the normal range. There is normal left ventricular wall thickness. There is normal LV segmental wall motion. The left ventricular diastolic function is normal. LVEF is 55%. Right Ventricle : The right ventricle is normal size. The right ventricular systolic function is norm al. Atria : The left atrium size is normal. The right atrium size is normal. Tricuspid Valve : The tricuspid valve is normal in structure. There is no tricuspid valve stenosis. T race tricuspid regurgitation. Unable to assess PA pressure. Great Vessels : The aortic root is normal in size. Ascending aorta is not well visualized. Aortic arc h is normal in caliber. IVC is normal in size and collapses >50% with inspiration. Compared to study from 02/25/2019, there is no significant change. Unfortunately TR jet is not great enough to estimate RVSP in this current study. Wall motion Left Ventricle The left ventricle is normal size. The left ventricular systolic function is normal. The left ventric ular ejection fraction is within the normal range. There is normal left ventricular wall thickness. T here is normal LV segmental wall motion. The left ventricular diastolic function is normal. There is no ventricular septal defect visualized. LVEF is 55%. Right Ventricle The right ventricle is normal size. The right ventricular systolic function is normal. Atria The left atrium size is normal. The right atrium size is normal. Aortic Valve Aortic valve is probably trileaflet. Aortic valve is grossly normal in structure. There is no aortic valvular stenosis. No aortic regurgitation is present. Mitral Valve The mitral valve is normal in structure. No evidence of mitral valve stenosis. Trace mitral regurgita tion. Tricuspid Valve The tricuspid valve is normal in structure. There is no tricuspid valve stenosis. Trace tricuspid reg urgitation. Unable to assess PA pressure. Pulmonic Valve Pulmonic valve is not well visualized. There is no pulmonic valvular stenosis. There is no pulmonic v alvular regurgitation. Great Vessels The aortic root is normal in size. Ascending aorta is not well visualized. Aortic arch is normal in c aliber. IVC is normal in size and collapses >50% with inspiration. Pericardium There is no pericardial effusion. 2D Dimensions IVSD d PLAX 1.01 cm F: 0.6-1.0 LV Vol A2C d MOD 56.9 mL LVPW d PLAX 1.04 cm F: 0.6 - 1.0 LV Vol A4C d MOD 71.0 mL LVID d PLAX 4.10 cm F: 3.8 - 5.2 LA vol/ BSA A2C s A-L 9.8 mL/m2 LVDs 3.05 cm F: 2.2 - 3.5 LA vol/ BSA A4C s A-L 17.7 mL/m2 Ao Root d 2.29 cm F: 2.7 - 3.3 LA Vol/ BSA Biplane s A-L 14.8 mL/m2 LV EF Teichholz 50.4 % LA Area A4C s MOD 14.12 cm2 LVEF (Ibrahim's) 55.25 % F: 54 - 74 LA Area A2C s MOD 9.38 cm2 LV Volume 47.93 mL F: 46 - 106 LV EF A4C MOD 54.7 % LV Volume Index 23.61 mL/m2 F: 29 - 61 LV EF A2C MOD 56.4 % LV Vol Biplane MOD 64.2 mL LV EF Biplane MOD 55.2 % FS 25.25 % SV 35.47 mL SV Index 17.49 mL/m2 M-Mode TAPSE 1.74 cm (M/F) >1.7 LV Diastology MV E' medial 0.074 (>0.07 m/s) E/A Ratio 0.8 LV E/e MED 8.90 (<14) MV E Vmax 0.66 (0.4-1.3 m/s) MV E' lateral 0.102 (>0.1 m/s) MV A Vmax 0.80 (0.4-1.3 m/s) LV E/e LAT 6.50 (<14) MV E/A Ratio 0.78 MV E/E' medial 8.90 MV E/E' lateral 6.51 Aortic Valve LVOT Area 2.92 cm2 AoV Area Vmax 2.76 cm2 LVOT Vmax 1.53 m/s AoV Area/ BSA (Vmax) 1.36 cm2/m2 LVOT Mean Alessandro. 0.91 m/s JOHN Mean Alessandro. 2.45 cm2 LVOT Peak Grad 9.3 mmHg JOHN Mean Alessandro. Index 1.21 cm2/m2 LVOT Mean Grad 4.1 mmHg LVOT VTI 0.250 m LVOT Diam s 1.90 cm AoV Vmax 1.61 m/s Velocity Ratio 0.95 AoV Mean Alessandro. 1.08 m/s AoV Peak Grad 10.4 mmHg LVOT SV 73.04 mL AoV Mean Grad 5.5 mmHg AoV VTI 0.260 m AoV Area VTI 2.81 cm2 AoV Area/ BSA (VTI) 1.38 cm/m2 Mitral Valve MV DT 291 (160-240 msec) MV PHT 85 msec MV Area PHT 2.60 cm2 Pulmonary Valve PV Vmax 1.14 (0.5-1.5 m/s) RVOT Peak Gr. 2.35 mmHg PV Peak Grad 5.2 mmHg RVOT Mean Gr. 0.95 mmHg PV Mean Grad 2.6 mmHg RVOT VTI 0.112 m PV VTI 0.183 m RVOT Vmax 0.77 m/s
== END 2020-06-21 00:46 ==
PROVIDERS: PCP Nurse Practitioner Family; Visit Provider Internal Medicine Cardiovascular Disease
DX: I27.20 Pulmonary hypertension, unspecified (principal)
CPT/HCPCS: 93306

== ENCOUNTER 2020-07-28 03:39 | Outpatient (CLI) | payer MEDICAID, SELFPAY ==
--- NOTE | 2020-07-28 | DI.CT_ITS ---
EXAM: CT CHEST WO CLINICAL HISTORY: DYSPNEA,R06.00. TECHNIQUE: Imaging protocol: Axial computed tomography images were obtained and coronal and sagittal reformatted images were created and reviewed. COMPARISON: CT CT ABDOMEN PELVIS W from 01/27/2019 CR XR CHEST 2V PA LATERAL from 07/14/2019 FINDINGS: Tracheobronchial tree: Patent where visualized. Mediastinum and Harmony: No dominant adenopathy or fluid collection. Pulmonary parenchyma: No focal consolidation. There is a 3 mm noncalcified pulmonary nodule in the r ight upper lobe. No architectural distortion. Pleura: No effusion or pneumothorax. Heart: The heart is not dilated. No coronary artery calcifications are seen. No pericardial effusion. Aorta: Thoracic aorta non-dilated. Upper abdomen: There is a cyst again seen in the right lobe of the liver. An anterior abdominal wal l hernia is incompletely imaged on the examination. It contains a loop of transverse colon. This wa s present on the CT scan of the abdomen and pelvis from 07/14/2019. Lymph nodes: Within normal limits. Bones:Degenerative changes. Soft tissues: Unremarkable. IMPRESSION: 1. No acute pulmonary process. 2. 3 mm noncalcified right upper lobe pulmonary nodule. If there is a significant past medical histo ry (example smoking), follow-up CT scan of the chest in 1 year should be obtained. RADIATION DOSE DELIVERED: 929.73mGy.cm Total DLP 929.73mGy.cm Total DLP DATA REPOSITORY: All CT scans at this facility are submitted to the National Radiology Data Registry (NRDR) Dose Index Registry (DIR) with the [employer] ([employer]). RADIATION OPTIMIZATION: All CT scans at this facility use at least one of these dose optimization te chniques: automated exposure control; mA and/or kV adjustment per patient size (includes targeted exa ms where dose is matched to clinical indication); or iterative reconstruction.
== END 2020-07-28 03:59 ==
PROVIDERS: PCP Nurse Practitioner Family; Visit Provider Internal Medicine
DX: R91.1 Solitary pulmonary nodule (principal)
CPT/HCPCS: 71250

== ENCOUNTER 2020-11-29 02:03 | Outpatient (CLI) | payer MEDICAID, SELFPAY ==
[2020-11-29 11:49] LABS: Source Nasal/Nares
[2020-11-29 14:15] LABS: COVID-19 PCR Negative (Negative)
== END 2020-11-29 02:04 | disposition home or self-care (01) ==
LOC: LBO 02:04
PROVIDERS: PCP Nurse Practitioner Family; Visit Provider Nurse Practitioner
DX: Z20.822 Contact with and (suspected) exposure to COVID-19 (principal); Z01.818 Encounter for other preprocedural examination; G47.33 Obstructive sleep apnea (adult) (pediatric)
CPT/HCPCS: 87635

== ENCOUNTER 2022-05-15 08:09 | Outpatient (REF) | payer MEDICAID, SELFPAY ==
[2022-05-15 17:12] LABS: ALT 20 U/L (14-59); AST 18 U/L (15-37); Albumin 3.2 g/dL (3.4-5.0); Alkaline Phosphatase 57 U/L (46-116); Anion Gap 9.5 mmol/L (3-11); BUN 8 mg/dL (7-18); Bilirubin, Total 0.3 mg/dL (0.2-1.0); CO2 29.5 mmol/L (21.0-32.0); CREATININE 0.8 mg/dL (0.55-1.02); Calculated LDL 136 mg/dL (<100); Chloride 102 mmol/L (98-107); Cholesterol 207 mg/dL (<200); Estimated GFR 89.15 (mL/min/1.73m2); Glucose 102 mg/dL (74-106); HDL Cholesterol 39 mg/dL (40-60); Potassium 4.7 mmol/L (3.5-5.1); Sodium 141 mmol/L (136-145); Total Protein 7.7 g/dL (6.4-8.2); Triglyceride 163 mg/dL (<150)
== END 2022-05-15 08:10 | disposition home or self-care (01) ==
LOC: NCHCN 08:09
PROVIDERS: PCP Nurse Practitioner Family; Visit Provider Nurse Practitioner Family
DX: I10 Essential (primary) hypertension (principal); I27.20 Pulmonary hypertension, unspecified; K43.9 Ventral hernia without obstruction or gangrene; F17.200 Nicotine dependence, unspecified, uncomplicated
CPT/HCPCS: 80053; 80061

== ENCOUNTER 2023-05-29 17:12 | Outpatient (REF) | payer MEDICAID, SELFPAY ==
[2023-05-29 18:53] LABS: Abs Immature Grans 0.02 10^3/uL (0.0-0.06); Absolute Basophil Count 0.05 10^3/uL (0.0-0.2); Absolute Eosinophil Count 0.07 10^3/uL (0.0-0.7); Absolute Lymphocyte Count 1.61 10^3/uL (1.2-3.4); Absolute Monocyte Count 0.45 10^3/uL (0.1-0.8); Absolute Neutrophil Count 6.48 10^3/uL (1.2-6.7); Basophils % 0.6; Eosinophils % 0.8; Immature Grans % 0.2; Lymphocytes % 18.5; MCH 26.6 pg (27.0-33.0); MCHC 31.5 % (32.0-36.0); MCV 85 fL (80-95); MPV 8.8 fL (8.0-11.0); Monocytes % 5.2; Neutrophils % 74.7; Platelet Count 421 10^3/uL (130-400); RBC 6.38 10^6/uL (3.93-5.22); RDW 15.5 % (11.7-14.6); RDW-SD 46.9 fL; WBC 8.68 10^3/uL (4.4-10.8)
[2023-05-29 19:12] LABS: ALT 27 U/L (14-59); AST 22 U/L (15-37); Albumin 3.1 g/dL (3.4-5.0); Alkaline Phosphatase 56 U/L (46-116); Anion Gap 3.7 mmol/L (3-11); BUN 7 mg/dL (7-18); Bilirubin, Total 0.4 mg/dL (0.2-1.0); CO2 33.3 mmol/L (21.0-32.0); CREATININE 0.7 mg/dL (0.55-1.02); Calculated LDL 110 mg/dL (<100); Chloride 97 mmol/L (98-107); Cholesterol 166 mg/dL (<200); Glucose 115 mg/dL (74-106); HDL Cholesterol 36 mg/dL (40-60); Potassium 4.5 mmol/L (3.5-5.1); Sodium 134 mmol/L (136-145); Total Protein 7.2 g/dL (6.4-8.2); Triglyceride 103 mg/dL (<150)
== END 2023-05-29 17:13 | disposition home or self-care (01) ==
LOC: NCHCN 17:12
PROVIDERS: PCP Nurse Practitioner Family; Visit Provider Nurse Practitioner Family
DX: I10 Essential (primary) hypertension (principal); R06.09 Other forms of dyspnea; E78.5 Hyperlipidemia, unspecified
CPT/HCPCS: 80053; 80061; 85025

== ENCOUNTER → 2023-07-02 03:24 | Outpatient (CLI) | payer MEDICAID, SELFPAY ==
--- NOTE | 2023-07-02 | DI.CT_ITS ---
Exam(s) CT CHEST WO EXAM: CT CHEST WO CLINICAL HISTORY: F/U LUNG NODULE,R91.8,SOB,R06.09,HYPOXEMIA,F09.02,SMOKER,F17.200,F/U 2019. TECHNIQUE: Imaging protocol: Axial computed tomography images were obtained and coronal and sagittal reformatted images were created and reviewed. COMPARISON: CT CT ABDOMEN PELVIS W from 01/27/[address] CHEST WO from 07/28/2020 FINDINGS: Tracheobronchial tree: Patent where visualized. Pulmonary parenchyma: No consolidation or dominant measurable mass. There is a stable 3 mm nodule in the right upper lobe. There is a stable subpleural 3 mm nodule in the right middle lobe. There is a 3 mm subpleural nodule in the superior segment of the right lower lobe. This is unchanged. No new pulmonary nodules are present. Mediastinum and Harmony: No dominant adenopathy or fluid collection. The esophagus is unremarkable. Thyroid gland: Unremarkable. Pleura: No effusion or pneumothorax. Heart: The heart is not dilated. No coronary artery calcifications are seen. No pericardial effusion. Aorta: Thoracic aorta non-dilated. Atherosclerosis is present. Upper abdomen: There is again seen a cyst in the right lobe of the liver. A midline anterior abdomi nal wall hernia is incompletely imaged. Portions of the colon are seen within the hernia. No obviou s obstruction is identified. The amount of bowel seen within the hernia has increased compared to th e prior examination from 2019. Lymph nodes: Within normal limits. Soft tissues: Unremarkable. Bones:Within normal limits for the patient's age. IMPRESSION: 1. Stable pulmonary nodules. Follow-up CT scan in 12 months is recommended for re-evaluation. 2. No acute pulmonary process. RADIATION DOSE DELIVERED: Total DLP Total DLP DATA REPOSITORY: All CT scans at this facility are submitted to the National Radiology Data Registry (NRDR) Dose Index Registry (DIR) with the [employer] (ACR). RADIATION OPTIMIZATION: All CT scans at this facility use at least one of these dose optimization te chniques: automated exposure control; mA and/or kV adjustment per patient size (includes targeted exa ms where dose is matched to clinical indication); or iterative reconstruction.
== END ==
PROVIDERS: PCP Nurse Practitioner Family; Visit Provider Nurse Practitioner Family
DX: R91.8 Other nonspecific abnormal finding of lung field (principal); F17.210 Nicotine dependence, cigarettes, uncomplicated
CPT/HCPCS: 71250

== ENCOUNTER 2023-07-18 04:25 | Outpatient (CLI) | payer MEDICAID, SELFPAY ==
[2023-07-18] MEDS: Levalbuterol HFA 15 GM INH 4 PUFF IH (09:11)
[2023-07-18] MEDS: Inhaler, Assist Device 1 EACH MC (09:12)
--- NOTE | 2023-07-21 16:02 | W.PFT ---
Date of service: 07/18/23 Time of Service: 08:02 Pulmonary Function Test Result Indications: Dyspnea Interpretation Spirometry: There is no airflow limitation. No bronchodilator response. There is restrictive appearing spirometry. Lung Volumes: There is some air trapping. Diffusion Capacity: Decreased diffusion Airway Pressure: Increased airways resistance Impression No airflow obtruction, but air trapping and a reduced diffusion could reflect emphysema. The restrictive spirometry is likely pseudo-restriction from obesity, given the normal TLC. Clinical Correlation therefore is recommended.
== END 2023-07-18 04:26 | disposition home or self-care (01) ==
LOC: RT 04:26
PROVIDERS: PCP Nurse Practitioner Family; Visit Provider Nurse Practitioner Family
DX: R06.09 Other forms of dyspnea (principal)
CPT/HCPCS: 94060; 94726; 94729

== ENCOUNTER → 2023-09-30 02:50 | Outpatient (CLI) | payer MEDICAID, SELFPAY ==
--- NOTE | 2023-09-30 08:30 | DI.US_ITS ---
APPROVED REPORT EXAM: Comprehensive 2D, Doppler, and color-flow Echocardiogram Patient Location: Out-Patient [facility] Hand: Zion Gonsalves RDCS (AE) Other Information Study Quality: Technically Limited. Technically limited study due to body habitus. Conclusion A technically limited study. 1. The RA/RV are moderately dilated, LA/LV normal sizes 2. Normal LV systolic function EF 55-60% 3. Moderate to severe RV systolic dysfuntion. 4. Anatomically normal valves. No significant regurgitation or stenosis. Unable to estimate right hea rt pressures. 5. No pericardial effusion. Impression: Probable Cor Pulmonale. Wall motion Left Ventricle The left ventricle is grossly normal size. Technically limited study due to body habitus. There is no ventricular septal defect visualized. Right Ventricle The right ventricle is normal size. Right ventricular systolic function is grossly normal. Atria The left atrium size is normal. The right atrium size is normal. The interatrial septum is intact wit h no evidence for an atrial septal defect. Aortic Valve The aortic valve is normal in structure. There is no aortic valvular stenosis. No aortic regurgitatio n is present. Mitral Valve The mitral valve appears normal in structure. No evidence of mitral valve stenosis. There is no david l valve regurgitation noted. Tricuspid Valve The tricuspid valve is normal in structure. There is no tricuspid valve stenosis. Trace tricuspid reg urgitation. Unable to assess PA pressure. Pulmonic Valve Pulmonic valve is not visualized. Great Vessels The aortic root is normal in size. Ascending aorta is not visualized. Aortic arch is not visualized. IVC is normal in size and collapses >50% with inspiration. Pericardium There is no pericardial effusion. 2D Dimensions Ao Root d 2.47 cm F: 2.7 - 3.3 M-Mode TAPSE 1.75 cm (M/F) >1.7 LV Diastology MV E' medial 0.062 (>0.07 m/s) MV E Vmax 0.55 (0.4-1.3 m/s) MV E/E' MED 8.87 (<14) MV A Vmax 0.85 (0.4-1.3 m/s) MV E' lateral 0.083 (>0.1 m/s) E/A Ratio 0.6 MV E/E' LAT 6.58 (<14) MV E' Average 0.073 m/s MV E/E'(average) 7.56 Aortic Valve AoV Vmax 1.34 m/s LVOT Vmax 1.05 m/s AoV Peak Grad 7.2 mmHg LVOT Peak Grad 4.4 mmHg AoV Area (Vmax) 1.74 cm2 LVOT VTI 0.174 m AoV VTI 0.240 m LVOT Mean Grad 2.5 mmHg AoV Mean Alessandro. 0.90 m/s LVOT SV 38.64 mL AoV Mean Grad 3.7 mmHg LVOT Diam s 1.65 cm AoV Area (VTI) 1.61 cm2 Velocity Ratio 0.78 Mitral Valve MV DT 179 (160-240 msec)
== END ==
PROVIDERS: PCP Nurse Practitioner Family; Visit Provider Nurse Practitioner Family
DX: I27.20 Pulmonary hypertension, unspecified (principal); R06.09 Other forms of dyspnea
CPT/HCPCS: 93306

== ENCOUNTER 2023-11-11 07:43 | Outpatient (CLI) | payer MEDICAID, SELFPAY ==
--- NOTE | 2023-11-11 07:30 | RT.EKG_ITS ---
APPROVED REPORT Exam: Resting ECG Reason for Exam: HTN, CINDY Patient Location: O HR:94 bpm ECG Measurements Heart Rate 94 AXIS ND 156 P 79 QRSd 93 QRS 151 QT 365 T -43 QTc 457 Conclusion Sinus rhythm...normal P axis, V-rate 50- 99 Right atrial enlargement...P>0.25mV 2 lds or<-0.24mV aVR/aVL Low voltage, precordial leads...precordial leads <1.0mV
== END 2023-11-11 07:44 | disposition home or self-care (01) ==
LOC: DI.CARD 07:44
PROVIDERS: PCP Nurse Practitioner Family; Visit Provider Internal Medicine Cardiovascular Disease
DX: I10 Essential (primary) hypertension (principal)
CPT/HCPCS: 93010

== ENCOUNTER 2024-01-06 15:49 | Outpatient (REF) | payer MEDICAID, SELFPAY ==
[2024-01-06 18:45] LABS: Abs Immature Grans 0.04 10^3/uL (0.0-0.06); Absolute Basophil Count 0.05 10^3/uL (0.0-0.2); Absolute Eosinophil Count 0.05 10^3/uL (0.0-0.7); Absolute Lymphocyte Count 2.41 10^3/uL (1.2-3.4); Absolute Monocyte Count 0.55 10^3/uL (0.1-0.8); Absolute Neutrophil Count 6.35 10^3/uL (1.2-6.7); Basophils % 0.5; Eosinophils % 0.5; HGB 18.9 g/dL (11.2-15.7); Immature Grans % 0.4; Lymphocytes % 25.5; MCH 28.3 pg (27.0-33.0); MCHC 32.4 % (32.0-36.0); MCV 87 fL (80-95); Monocytes % 5.8; Neutrophils % 67.3; Platelet Count 365 10^3/uL (130-400); RBC 6.67 10^6/uL (3.93-5.22); RDW 15.5 % (11.7-14.6); RDW-SD 47.8 fL; WBC 9.45 10^3/uL (4.4-10.8)
[2024-01-06 18:54] LABS: HCT 58.3 % (36.0-46.0)
[2024-01-06 18:59] LABS: ALT 22 U/L (14-59); AST 23 U/L (15-37); Albumin 3.5 g/dL (3.4-5.0); Alkaline Phosphatase 68 U/L (46-116); Anion Gap 6.6 mmol/L (3-11); BUN 6 mg/dL (7-18); Bilirubin, Total 0.5 mg/dL (0.2-1.0); CO2 33.4 mmol/L (21.0-32.0); CREATININE 0.7 mg/dL (0.55-1.02); Calcium 9.4 mg/dL (8.5-10.1); Chloride 97 mmol/L (98-107); Glucose 99 mg/dL (74-106); Potassium 4.7 mmol/L (3.5-5.1); Sodium 137 mmol/L (136-145); Total Protein 7.8 g/dL (6.4-8.2)
== END 2024-01-06 15:50 | disposition home or self-care (01) ==
LOC: NCHCN 15:49
PROVIDERS: PCP Nurse Practitioner Family; Visit Provider Nurse Practitioner Family
DX: I10 Essential (primary) hypertension (principal); J96.10 Chronic respiratory failure, unspecified whether with hypoxia or hypercapnia
CPT/HCPCS: 80053; 85025